=== PATIENT | female | born 1950 | race Caucasian/White ===

== ENCOUNTER → 2024-06-15 | Outpatient (CLI) | payer MEDICARE, OTHER ==
--- NOTE | 2024-06-15 09:42 | CT ---
EXAMINATION TYPE: CT chest wo con DATE OF EXAM: 06/15/2024 COMPARISON: NONE CLINICAL INDICATION: Female, 73 years old with history of R93.89 ABNORMAL FINDINGS ON DX IMAGING OF O TH BODY, Hx of pleural effusion. TECHNIQUE: CT scan of the thorax is performed without IV contrast. CT DLP: 156.2 mGycm. Automated Exposure Control for Dose Reduction was Utilized. FINDINGS: LUNGS: Mild bibasilar linear scarring and/or atelectasis is seen. Moderate underlying emphysematous c hanges greatest in the upper lungs is present. There is 4 mm calcified nodule of benign granuloma lef t lower lobe medially on axial image 41. No suspicious focal consolidation. No pleural effusion or pn eumothorax seen bilaterally. HEART: Size within normal limits.Moderate calcified plaque in the thoracic aorta. Severe three-vessel coronary artery calcifications. MEDIASTINUM: Lack of IV contrast is noted to limit evaluation for mediastinal and especially hilar ad enopathy. There are no definitive greater than 1 cm mediastinal lymph nodes. No pericardial effusio n is seen. Ascending aorta measures up to 3.7 cm in diameter. There is severe three-vessel coronary a rtery calcification noted. OTHER: No additional significant abnormality is seen. IMPRESSION: Moderate emphysematous change without suspicious acute pulmonary process. [facility], , 06/15/2024 9:39 AM
== END | disposition home or self-care (01) ==
LOC: RADCTMAIN 09:16
PROVIDERS: ATTEND Internal Medicine
DX: J43.9 Emphysema, unspecified (principal); R93.89 Abnormal findings on diagnostic imaging of other specified body structures
CPT/HCPCS: 71250